=== PATIENT | female | born 1965 | race Caucasian/White ===

== ENCOUNTER 2017-07-30 10:02 | Outpatient (CLI) | payer BC ==
[2017-07-30 17:27] LABS: BASOPHILS % (AUTO) 0.4 %; EOSINOPHILS # (AUTO) 0.1 10^3/uL (0.0-0.7); EOSINOPHILS % (AUTO) 2.6 %; HGB - HEMOGLOBIN 13.5 g/dL (12.0-16.0); LYMPHOCYTES # (AUTO) 0.9 10^3/uL (1.5-3.5); LYMPHOCYTES % (AUTO) 17.6 %; MEAN CORPUSCULAR HEMOGLOBIN 29.4 pg (27.0-31.0); MEAN CORPUSCULAR HGB CONC 33.2 g/dL (32.0-36.0); MEAN CORPUSCULAR VOLUME 88.7 fL (81.0-99.0); MEAN PLATELET VOLUME 8.8 fL (7.9-10.8); MONOCYTES # (AUTO) 0.4 10^3/uL (0.0-1.0); MONOCYTES % (AUTO) 7.7 %; NEUTROPHILS # (AUTO) 3.5 10^3/uL (1.5-6.6); NEUTROPHILS % (AUTO) 71.7 %; PLT - PLATELET COUNT 242 10^3/uL (130-450); RED BLOOD COUNT 4.57 10^6/uL (4.20-5.40); WHITE BLOOD COUNT 4.9 x10^3/uL (4.8-10.8)
[2017-07-30 17:41] LABS: ALBUMIN 3.8 g/dL (3.2-5.5); ALBUMIN/GLOBULIN RATIO 1.4 (1.0-2.2); ALKALINE PHOSPHATASE 47 IU/L (42-121); ALT ALANINE AMINOTRANSFERASE 21 IU/L (10-60); AST ASPARTATE AMINOTRANSFERASE 23 IU/L (10-42); BILIRUBIN,TOTAL 0.8 mg/dL (0.2-1.0); BUN - BLOOD UREA NITROGEN 11 mg/dL (6-20); CALCIUM 8.7 mg/dL (8.5-10.3); CARBON DIOXIDE - CO2 26 mmol/L (21-32); CHLORIDE 105 mmol/L (101-111); CHOL/HDL RATIO 2.2 (<4.4); CHOLESTEROL 169 mg/dL; CREATININE 0.6 mg/dL (0.4-1.0); GFR - MDRD 106 (>89); GLUCOSE 92 mg/dL (70-100); HDL CHOLESTEROL 76 mg/dL; LDL CHOLESTEROL,CALCULATED 83 mg/dL; LDL/HDL RATIO 1.1 (<4.4); SODIUM 136 mmol/L (135-145); TOTAL PROTEIN 6.6 g/dL (6.7-8.2); VLDL CHOLESTEROL 10 mg/dL
== END 2017-07-30 10:03 | disposition home or self-care (01) ==
LOC: LAB.F 10:02
PROVIDERS: ATTEND Physician Assistant Medical
DX: Z00.00 Encounter for general adult medical examination without abnormal findings (principal); E55.9 Vitamin D deficiency, unspecified
CPT/HCPCS: 36415; 80053; 80061; 82306; 83721; 84443; 85025

== ENCOUNTER 2017-08-21 09:45 | Outpatient (CLI) | payer BC ==
--- NOTE | 2017-08-21 14:13 | Ultrasound Report ---
LEFT BREAST ULTRASOUND: 08/21/2017. CLINICAL INDICATION: Palpable abnormality left breast on clinical exam. FINDINGS: Ultrasound of the region of palpable abnormality identified on the requisition was performed. Unremarkable parenchymal lobules are seen. No discrete solid or cystic masses appreciated. No sonographically suspicious findings are seen. IMPRESSION: NEGATIVE EXAMINATION. RECOMMENDATION: Routine annual screening unless otherwise clinically indicated. BIRADS CATEGORY 1-NEGATIVE. TD: 08/21/2017 14:12
--- NOTE | 2017-08-21 14:21 | Mammography Report ---
DIGITAL DIAGNOSTIC MAMMOGRAM: 08/21/2017. CLINICAL INDICATION: Palpable abnormality on clinical examination. COMPARISON: 06/16/2009, 10/09/2007. TECHNIQUE: Bilateral CC, MLO, left true lateral views. FINDINGS: The breasts demonstrate scattered fibroglandular densities bilaterally, no suspicious masses, clustered microcalcifications, or regions of architectural distortion are identified. Specifically, no mammographic abnormality is appreciated in the 7 o 'clock position of the left breast, at the site indicated on the requisition. Please also refer to left breast ultrasound of the same day. IMPRESSION: NEGATIVE EXAMINATION. RECOMMENDATION: Routine annual screening unless otherwise clinically indicated. BIRADS CATEGORY 1 - NEGATIVE. STANDARD QUALIFYING STATEMENTS 1. This examination was reviewed with the aid of Computed Aided Detection (CAD). 2. A negative x-ray report should not delay biopsy if a dominant or clinically suspicious mass is present. More than 5% of cancers are not identified by x-ray. 3. Dense breasts may obscure an underlying neoplasm. TD: 08/21/2017 14:21 [place]
== END 2017-08-21 09:46 | disposition home or self-care (01) ==
LOC: DI 09:45
PROVIDERS: ATTEND Physician Assistant Medical
DX: N63.23 Unspecified lump in the left breast, lower outer quadrant (principal)
CPT/HCPCS: 76642; 77066

== ENCOUNTER 2017-11-22 11:15 | Outpatient (CLI) | payer BC | END 2017-11-22 11:16 | disposition home or self-care (01) | LOC: LAB.F 11:15 | PROVIDERS: ATTEND Physician Assistant Medical | DX: E55.9 Vitamin D deficiency, unspecified (principal) | CPT/HCPCS: 36415; 82306 ==

== ENCOUNTER 2021-06-06 11:01 | Outpatient (CLI) | payer BC ==
--- NOTE | 2021-06-06 11:57 | SLEEP CARE CONSULTATION ---
Information from patient questionnaire entered by Raj Pena MA. I have reviewed and concur with the information entered by Raj Pena MA. This document represents the service I personally performed and the decisions made by , Jasmin Jara ARNP. History of Present Illness Service Date and Time: 06/06/2021 1101 Reason for Visit: New patient Chief Complaint: reports: Snoring, Observed pauses in breathing, Frequent awakenings at night Date of Onset: 3 years Usual bedtime: 10:30 PM Time it takes to fall asleep: 20 minutes Snores at night: Yes Observed to quit breathing while asleep: Yes Sleeps alone due to snoring: Yes (sometimes) Number of times waking at night: 4-6 times Reasons for waking at night: reports: Snoring, Bathroom, Other (noise and unknown reason ). denies: Choking, Gasping for air Toss, Turn, or Twitch while sleeping: Yes Recalls having dreams: Yes (sometimes) Usually gets out of bed at: 0620 Feels refreshed in the morning: No Morning headache: No Sleepy or fatigued during the day: Yes (sometimes) Ever fallen asleep while driving: No Takes day naps: Yes (sometimes; 4 times a week for about 20 mins) Dreams during day naps: No Prior sleep studies: No Additional HPI information: I had the pleasure of seeing UNIQUE WRAY today regarding the possibility of her having a sleep disorder. Her current complaints are observed pauses in breathing, snoring and frequent night awakenings. Her has told her she snores loudly and will stop breathing in her sleep. He will sometimes sleep in another room because her snoring is so loud. She wakes up several times a night. 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 Patient is and lives in [place]. Have you smoked in the past 12 months: No Alcohol use: Yes Alcohol amount and frequency: 1 drink, 1-2 times a week Caffeine use: Yes Caffeine amount and frequency: 1 cup daily Family History Family history of sleep disordered breathing: Yes (snoring) Family Hx Sleep Apnea: Sibling: Snoring, Grandparent: Snoring Allergies and Home Medications Known drug allergies: No Drug allergies reviewed: Yes (NKDA) Home medication list reviewed: Yes Allergy and home medication list: Zyrtec Fluticasone nasal spray off/on with vitamins Review of Systems Weight gain over past 5 years: 25 pounds Respiratory: reports: shortness of breath, chronic cough Gastrointestinal: reports: heartburn Ear/Nose/Throat: reports: nasal congestion (post nasal drip ), hoarseness, tonsillectomy, wisdom teeth removed Musculoskeletal: reports: joint pain, neck pain, joint swelling Immunologic: reports: sneezing, allergies to food or environment Physical Exam Vital signs obtained and entered by: Derick PENA CMA [facility] Blood Pressure: 136/102 (RIGHT, PULSE 65) Cuff size: wrist Heart Rate: 69 O2 Saturation: 98 (WITH PAPER MASK) Height: 5 ft 6 in Weight: 210 lb (CLOTHED, PER PT) Body Mass Index: 33.9 BMI Classification: Obese Neck circumference: 14 (inches) Mouth and throat: narrow oropharynx Soft palate: long Hard palate: normal Uvula: normal Uvula visualization: 100% Mallampati Class I Tongue: enlarged in size with teeth wu on lateral edges Tonsils: absent bilaterally Neck: normal w/o lymphadenopathy or thyromegaly Heart: regular rate and rhythm Lungs: clear bilaterally Impression and Plan 1. Suspected Obstructive Sleep Apnea-Hypopnea Syndrome, as suggested by a history of loud and irregular snoring, observed cessation of breath while asleep, frequent awakening during the night, unrefreshed sleep, and cognitive impairment. Narrow oropharynx and obesity are common predisposing factors for obstructive sleep apnea-hypopnea syndrome. I recommend proceeding to polysomnography to confirm the diagnosis and to assess severity. If the patient has significant sleep disordered breathing, a manual CPAP titration study will also be performed to find the optimal treatment pressure. I informed the patient of what the sleep studies involve and after some discussion, obtained agreement to proceed. The pathophysiology of obstructive sleep apnea-hypopnea syndrome was discussed with the patient and health risks of cardiovascular and cerebro vascular disease if not treated. AASM brochure for obstructive sleep apnea- hypopnea syndrome given and reviewed. Risks of drowsy driving discussed in detail and patient advised to avoid long distance driving and to gizzard puller at the first sign of drowsiness. Patient agreed to plan. * Schedule polysomnography * Avoid long distance driving or driving when feeling sleepy. * Avoid alcohol, sedative and muscle relaxant around bedtime. * Attempt to lose weight. * Review instructions provided by trained office staff on how to prepare for the sleep study. * Return for follow-up after sleep study completed. Counseling Topics: Weight loss health impact Visit Type: In Office Time Spent with Patient (minutes): 30 Provider Statement: I spent 100% of the Face to Face Visit with the patient with greater than 50% spent counseling the patient and coordination of care.
[2021-06-06 11:58] VITALS: BP 136/102
== END 2021-06-06 11:02 | disposition home or self-care (01) ==
LOC: SC 11:01
PROVIDERS: ATTEND Nurse Practitioner Family
DX: R06.81 Apnea, not elsewhere classified (principal); G47.8 Other sleep disorders; R06.83 Snoring; R41.89 Other symptoms and signs involving cognitive functions and awareness; E66.9 Obesity, unspecified; Z68.33 Body mass index [BMI] 33.0-33.9, adult
CPT/HCPCS: 99203; 99212

== ENCOUNTER 2021-06-21 15:39 | Outpatient (CLI) | payer BC | END 2021-06-21 15:40 | disposition home or self-care (01) | LOC: SC 15:39 | PROVIDERS: ATTEND Nurse Practitioner Family | DX: G47.33 Obstructive sleep apnea (adult) (pediatric) (principal); R09.02 Hypoxemia | CPT/HCPCS: 95806 ==

== ENCOUNTER 2021-07-07 11:56 | Outpatient (CLI) | payer BC ==
[2021-07-07 12:08] VITALS: BP 120/74
--- NOTE | 2021-07-07 12:08 | SLEEP CARE CONSULTATION ---
Information from patient questionnaire entered by Raj Huff MA. I have reviewed and concur with the information entered by Raj Huff MA. This document represents the service I personally performed and the decisions made by , Jasmin Jara ARNP. History of Present Illness Service Date and Time: 07/07/2021 1140 Initial [place] Sleepiness Scale score: 10 Current [place] Sleepiness Scale score: 7 (2021) Additional HPI information: UNIQUE WRAY returns for follow up and results of the recently performed home sleep study. I explained the pathophysiology behind obstructive sleep apnea. We then spent quite a bit of time discussing different treatment options. For mild obstructive sleep apnea, surgery and oral appliance are alternatives to nasal CPAP therapy but in moderate or severe cases, nasal CPAP is the most effective and reliable treatment. Because apnea is primarily in supine position, then positional management therapy could be effective. Methods discussed such as positioning with pillows to prevent supine sleep. I reviewed the impact of weight changes on sleep apnea and strongly recommended losing weight. After some discussion, the patient opted to go with the nasal CPAP therapy. Nasal autoCPAP set at 4-15 cmH20 will be ordered with rationale explained. A manual titration study will be ordered if unable to find optimal pressure with office adjustments. I explained how CPAP machine works and what to expect when using the machine. Using CPAP every night in order to get used to it was emphasized. Patient advised to put CPAP mask on before getting into bed so as not to fall asleep wit hout CPAP. To assist acclimation to CPAP use, it could also be used for a short time during day while reading or watching TV. The patient was instructed to call the CPAP supplier to discuss any mechanical problem that may occur. If the mask given is uncomfortable or is difficult to keep on through the night even with adjustment, contact the CPAP supplier as many will replace with another mask sty le if notified before 30 days. If snoring or perceives is not getting enough air or too much air from the machine, notify this office. AASM patient education PAP tips reviewed and given to patient. Patient counseled not drink alcohol less than 4 hours before bedtime as it can increase snoring and apnea. Patient was cautioned about risks of drowsy driving until sleepiness symptoms resolve. Patient denies drowsy driving. Sleep Study - Results Type of Sleep Study: Home sleep study (F/U HOME STUDY) Prior sleep studies: No Polysomnography/Home Sleep Study results: Physician Impression: The quality of the study is good. The length of the study is adequate (> 240 minutes). Please also see the tabulated and graphic data. 1. Obstructive Sleep Apnea-Hypopnea (ICD-10 G47.33), mild, with an AHI of 14.9/hr and [place] SaO2 of 86%. During the study, the patient had 86 apneas (86 obstructive, 0 central, 0 mixed) and 22 hypopneas. The longest episode lasted 80.0 seconds. The patient did not sleep supine during this study. 2. Hypoxemia (ICD-10 R09.02), minimal, with the lowest oxygen saturation of 86 % and 0.4 minutes with SaO2 under 90%. Baseline oxygen saturation was normal (Average oxygen saturation was 95%). Allergies and Home Medications Home medication list reviewed: Yes (omeprazole and Zyrtec) Review of Systems Review of systems same as previous: No (acid reflux and stomach pain; being evaluated) Physical Exam Vital signs obtained and entered by: KATHERINE CORRALES Blood Pressure: 120/74 (RIGHT,PULSE 74, RESP 16,) Heart Rate: 74 O2 Saturation: 98 (PAPER MASK) Height: 5 ft 6 in Weight: 210 lb Body Mass Index: 33.9 BMI Classification: Obese Impression and Plan 1. Obstructive Sleep Apnea-Hypopnea Syndrome, 14.9, with lowest oxygen saturation of 86%. Obviously this is the cause of the patients symptoms of unrefreshed sleep, and excessive daytime sleepiness. As mentioned above, the patient will be started on nasal autoCPAP therapy with pressure set at 4-15 cmH2 O. A manual titration study will be completed if unable to find optimal treatment pressure with office adjustments. Compliance guidelines also reviewed. A copy of compliance guidelines will be given for reference at check out. 2. Hypoxemia, minimal, with the lowest oxygen saturation of 86 % and 0.4 minutes with SaO2 under 90%. Her baseline oxygen saturation was normal with an average oxygen saturation of 95%. * Nasal auto CPAP therapy, pressure at 4-15 cm H2O. * Attempt to lose weight. * Avoid alcohol consumption near bedtime. * Avoid supine sleep until using CPAP. * The patient is again cautioned about driving until sleepiness completely resolves. * Return one month after CPAP obtained. I will assess response to therapy and compliance at that time. Counseling Topics: Weight loss health impact Visit Type: In Office Time Spent with Patient (minutes): 20 Provider Statement: I spent 100% of the Face to Face Visit with the patient with greater than 50% spent counseling the patient and coordination of care.
== END 2021-07-07 11:57 | disposition home or self-care (01) ==
LOC: SC 11:56
PROVIDERS: ATTEND Nurse Practitioner Family
DX: G47.33 Obstructive sleep apnea (adult) (pediatric) (principal); R09.02 Hypoxemia; E66.9 Obesity, unspecified; Z68.33 Body mass index [BMI] 33.0-33.9, adult
CPT/HCPCS: 99212; 99213

== ENCOUNTER 2021-07-25 11:00 | Outpatient (CLI) | payer BC ==
[2021-07-25] MEDS ORDERED: ALBUTEROL 1 PUFF INH STA (12:46)
== END 2021-07-25 11:01 | disposition home or self-care (01) ==
LOC: RT 11:00
PROVIDERS: ATTEND Registered Nurse
DX: R06.09 Other forms of dyspnea (principal)
CPT/HCPCS: 94060; 94729

== ENCOUNTER 2021-07-26 07:38 | Outpatient (CLI) | payer BC ==
[2021-07-26 07:55] LABS: BASOPHILS % (AUTO) 0.4 %; EOSINOPHILS # (AUTO) 0.2 10^3/uL (0.0-0.7); EOSINOPHILS % (AUTO) 3.1 %; HCT - HEMATOCRIT 42.7 % (37.0-47.0); HGB - HEMOGLOBIN 14.3 g/dL (12.0-16.0); LYMPHOCYTES # (AUTO) 1.3 10^3/uL (1.5-3.5); LYMPHOCYTES % (AUTO) 25.6 %; MEAN CORPUSCULAR HEMOGLOBIN 30.2 pg (27.0-31.0); MEAN CORPUSCULAR HGB CONC 33.5 g/dL (32.0-36.0); MEAN CORPUSCULAR VOLUME 90.1 fL (81.0-99.0); MEAN PLATELET VOLUME 9.8 fL (7.9-10.8); MONOCYTES # (AUTO) 0.4 10^3/uL (0.0-1.0); MONOCYTES % (AUTO) 8.4 %; NEUTROPHILS # (AUTO) 3.2 10^3/uL (1.5-6.6); NEUTROPHILS % (AUTO) 62.3 %; PLT - PLATELET COUNT 255 10^3/uL (130-450); RED BLOOD COUNT 4.74 10^6/uL (4.20-5.40); RED CELL DISTRIBUTION WIDTH 12.5 % (12.0-15.0); WHITE BLOOD COUNT 5.1 x10^3/uL (4.8-10.8)
[2021-07-26 08:23] LABS: ALBUMIN 3.8 g/dL (3.2-5.5); ALBUMIN/GLOBULIN RATIO 1.3 (1.0-2.2); ALKALINE PHOSPHATASE 52 IU/L (42-121); ALT ALANINE AMINOTRANSFERASE 21 IU/L (10-60); AST ASPARTATE AMINOTRANSFERASE 22 IU/L (10-42); BILIRUBIN,TOTAL 0.6 mg/dL (0.2-1.0); BUN - BLOOD UREA NITROGEN 14 mg/dL (6-20); CALCIUM 8.8 mg/dL (8.5-10.3); CARBON DIOXIDE - CO2 25 mmol/L (21-32); CHLORIDE 104 mmol/L (101-111); CHOL/HDL RATIO 2.5 (<4.4); CHOLESTEROL 196 mg/dL; CREATININE 0.7 mg/dL (0.4-1.0); GFR - MDRD 87 (>89); GLUCOSE 101 mg/dL (70-100); HDL CHOLESTEROL 78 mg/dL; LDL CHOLESTEROL,CALCULATED 106 mg/dL; LDL/HDL RATIO 1.4 (<4.4); POTASSIUM 3.8 mmol/L (3.5-5.0); SODIUM 138 mmol/L (135-145); TOTAL PROTEIN 6.7 g/dL (6.7-8.2); TRIGLYCERIDES 61 mg/dL; VLDL CHOLESTEROL 12 mg/dL
[2021-07-26 08:35] LABS: THYROID STIMULATING HORMONE 2.96 uIU/mL (0.34-5.60)
== END 2021-07-26 07:39 | disposition home or self-care (01) ==
LOC: LAB 07:38
PROVIDERS: ATTEND Registered Nurse
DX: Z13.228 Encounter for screening for other metabolic disorders (principal); Z13.220 Encounter for screening for lipoid disorders; Z13.29 Encounter for screening for other suspected endocrine disorder; Z13.0 Encounter for screening for diseases of the blood and blood-forming organs and certain disorders involving the immune mechanism
CPT/HCPCS: 36415; 80053; 80061; 83721; 84443; 85025

== ENCOUNTER 2021-09-05 08:20 | Day surgery (SDC) | payer BC ==
[2021-09-05] MEDS ORDERED: LACTATED RINGERS 1,000 ML IV ONE ×2 (08:26→10:21)
[2021-09-05 08:37] LABS: HCG UR QUAL NEGATIVE
--- NOTE | 2021-09-05 08:59 | ANESTHESIA ---
Pre-Anesthesia VS, & Labs - Diagnosis screening - Procedure colonoscopy Vital Signs: Temp Pulse Resp BP Pulse Ox 36.6 C 76 16 132/96 H 100 09/05/21 08:40 09/05/21 08:40 09/05/21 08:40 09/05/21 08:40 09/05/21 08:40 Height: 5 ft 6 in Weight (kg): 95.4 kg Body Mass Index: 33.9 BMI Classification: Obese - NPO >8 hours - Is Patient ?: No Anes History & Medical History - Anesthetic History Anesthesia Complications: reports: No previous complications - Medical History Cardiovascular: reports: None Pulmonary: reports: Sleep apnea, CPAP use Gastrointestinal: reports: GERD Skin: reports: Other (recent hives on arms and legs of unknown cause, was given three doses of prednesone, resolved last week) Exam General: Alert, Oriented x3 Dental: WNL Mouth Opening: Greater than 4 Fingerbreadths Mallampati classification: I Thyromental Distance: greater than 6 cm Respiratory: Lungs clear Cardiovascular: Regular rate, Normal S1, Normal S2 Plan Anesthesia Type: Total IV Consent for Procedure(s) Verified and Reviewed: Yes Code Status: Attempt Resuscitation ASA classification: 2-Mild systemic disease Is this case an emergency?: No
[2021-09-05] MEDS ORDERED: PROPOFOL 500 MG/50 ML 500 MG/50 ML VIAL ONE (09:14)
[2021-09-05] MEDS ORDERED: SIMETHICONE 40 MG/0.6 ML 30 ML BOTTLE PO ONE (10:12)
[2021-09-05 10:33] VITALS: BP 105/72
--- NOTE | 2021-09-05 12:03 | ANESTHESIA POST OP EVALUATION ---
Anesthesia Post Eval - Post Anesthesia Eval Vitals: Last Vital Signs Temp 37.1 C 09/05/21 10:21 Pulse 74 09/05/21 10:31 Resp 19 09/05/21 10:31 BP 105/72 09/05/21 10:31 Pulse Ox 99 09/05/21 10:31 CV Function Including HR & BP: Stable Pain Control: Satisfactory Nausea & Vomiting: Negative Mental Status: Baseline Respiratory Status: Airway Patent Hydration Status: Satisfactory Anesthesia Complications: None
== END 2021-09-05 08:21 | disposition home or self-care (01) ==
LOC: SDS 08:20
PROVIDERS: ATTEND Surgery
DX: Z12.11 Encounter for screening for malignant neoplasm of colon (principal); K64.4 Residual hemorrhoidal skin tags; K57.30 Diverticulosis of large intestine without perforation or abscess without bleeding; E66.9 Obesity, unspecified; Z68.33 Body mass index [BMI] 33.0-33.9, adult; G47.30 Sleep apnea, unspecified; J44.9 Chronic obstructive pulmonary disease, unspecified; Z99.11 Dependence on respirator [ventilator] status
CPT/HCPCS: 45378; 81025; A9270; J7120

== ENCOUNTER 2021-09-15 11:13 | Outpatient (CLI) | payer BC ==
[2021-09-15 12:07] VITALS: BP 154/98
--- NOTE | 2021-09-15 12:07 | SLEEP CARE CONSULTATION ---
Information from patient questionnaire entered by Raj Huff MA. I have reviewed and concur with the information entered by Raj Huff MA. This document represents the service I personally performed and the decisions made by , Jasmin Jara ARNP. History of Present Illness Service Date and Time: 09/15/2021 1113 Previous diagnosis: Mild, Obstructive Sleep Apnea-Hypopnea Syndrome AHI: 14.9 Reason for follow up: first compliance (SET DATE 07/14/21, RESMED, ) Equipment type: CPAP Equipment obtained from: Other ([facility]; got initial supplies) Mask style: Nasal pillows Backup mask available: Yes (will keep old mask when replaced) Last cushion change: 1 week Prior sleep studies: No Type of Sleep Study: Home sleep study (F/U HOME STUDY) HPI additional information: UNIQUE WRAY was diagnosed to have mild, AHI 14.9, obstructive sleep apnea- hypopnea syndrome and returned today for CPAP therapy first compliance follow- up. Sleep Study - Results Type of Sleep Study: Home sleep study (F/U HOME STUDY) Prior sleep studies: No CPAP Compliance Data - Data Reviewed with Patient Average duration of nightly device use: 5 HOURS 43 MINUTES Compliance rate %: 87 Current pressure setting (cmH2O): 4-15 (median 8.6, avg 9.1, max 9.9) Average residual AHI: 1.2 Central apnea: .7 Obstructive apnea: .2 Average large leak: 4.6 Subjective Missed days of use due to: reports: travel Patient concerns: denies: aerophagia, mask discomfort, air blowing in eyes, mask leak noise, condensation in mask/hose, nasal congestion, dry mouth, nose, throat, epistaxis, other Observed to snore while using device: No Current pressure setting perceived as: comfortable On therapy, patient: reports: sleeping better, awakening more refreshed, being more awake and alert during the day, more rested overall. denies: drowsiness while driving Initial [place] Sleepiness Scale score: 10 Current [place] Sleepiness Scale score: 3 (08/2021) Allergies and Home Medications Home medication list reviewed: Yes (switched acid reflux medication, name unknown) Allergy and home medication list: Allergies No Known Drug Allergies Allergy (Verified 09/05/21 08:52) Review of Systems Review of systems same as previous: Yes (no changes) Physical Exam Vital signs obtained and entered by: Derick HUFF CMA [facility] Blood Pressure: 154/98 (RESP 18, PULSE 71, RIGHT,) Cuff size: wrist Heart Rate: 72 O2 Saturation: 98 (PAPER MASK) Height: 5 ft 6 in Weight: 211 lb (WITH CLOTHES) Body Mass Index: 34.0 BMI Classification: Obese Impression and Plan 1. Obstructive Sleep Apnea-Hypopnea Syndrome, mild, with good treatment compliance and good apnea control. On CPAP therapy, the patient has better sleep quality and is more rested overall. Patient denies problems with oral dryness, nasal congestion, epistaxis, skin irritation or aerophagia. The patients pressure will be changed to autoCPAP 8-10 cmH20 to reflect pressures being used. Patient advised to contact me if pressure change is uncomfortable so that it can be adjusted. Goals for apnea control discussed. Patient's apnea severity and rationale for treatment to reduce apnea, improve sleep quality and reduce cardiovascular and cerebrovascular events was reviewed. 2. Obesity, unspecified. Currently patients BMI is 34.0. Obesity increases the risk of apnea, CPAP pressure requirements and overall health risks especially cardiovascular and diabetes. Thus patient is advised to lose weight. Weight loss can be done with reducing portion size, reducing refined foods and balancing content with vegetables, fruit and whole grain foods. In addition, patient encouraged to get regular exercise. The patient's CPAP pressure range should accommodate some weight loss. Symptoms to report for additional pressure adjustment discussed. * Change auto CPAP pressure to 8-10 cmH2O * Notify me if snoring with mask or feeling that the pressure is too much or too little * Attempt to lose weight * Call this office if any problems using CPAP * Return for follow up in 1-2 months, or sooner if concerns arise Counseling Topics: Spare mask, Weight loss health impact Visit Type: In Office Time Spent with Patient (minutes): 20 Provider Statement: I spent 100% of the Face to Face Visit with the patient with greater than 50% spent counseling the patient and coordination of care.
== END 2021-09-15 11:14 | disposition home or self-care (01) ==
LOC: SC 11:13
PROVIDERS: ATTEND Nurse Practitioner Family
DX: G47.33 Obstructive sleep apnea (adult) (pediatric) (principal); E66.9 Obesity, unspecified; Z68.34 Body mass index [BMI] 34.0-34.9, adult
CPT/HCPCS: 99212; 99213

== ENCOUNTER 2021-10-24 11:18 | Outpatient (CLI) | payer BC ==
[2021-10-24 12:01] VITALS: BP 131/88
--- NOTE | 2021-10-24 12:01 | SLEEP CARE CONSULTATION ---
Information from patient questionnaire entered by Raj Huff MA. I have reviewed and concur with the information entered by Raj Huff MA. This document represents the service I personally performed and the decisions made by , Jasmin Jara ARNP. History of Present Illness Service Date and Time: 10/24/2021 1118 Previous diagnosis: Mild, Obstructive Sleep Apnea-Hypopnea Syndrome AHI: 14.9 (in 2021) Reason for follow up: one month (PRESSURE CHANGE, RESMED, REYES 07/14/21, ) Equipment type: CPAP Equipment obtained from: Other ([facility]; getting supplies) Mask style: Nasal pillows Backup mask available: Yes (other mask) Last cushion change: 2 days ago Prior sleep studies: No Type of Sleep Study: Home sleep study (F/U HOME STUDY) HPI additional information: UNIQUE WRAY was diagnosed to have mild, AHI 14.9, obstructive sleep apnea- hypopnea syndrome and returned today for CPAP therapy one month follow-up. Sleep Study - Results Type of Sleep Study: Home sleep study (F/U HOME STUDY) Prior sleep studies: No CPAP Compliance Data - Data Reviewed with Patient Average duration of nightly device use: 5 HOURS 42 MINUTES Compliance rate %: 93 Current pressure setting (cmH2O): 8-10 Average residual AHI: 1.5 Central apnea: 1.0 Obstructive apnea: 0.3 Hypopnea: .2 Average large leak: 4.3 L/min Subjective Missed days of use due to: reports: travel Patient concerns: denies: aerophagia, mask discomfort, air blowing in eyes, mask leak noise, condensation in mask/hose, nasal congestion, dry mouth, nose, throat, epistaxis, other Observed to snore while using device: No Current pressure setting perceived as: comfortable On therapy, patient: reports: sleeping better, awakening more refreshed, being more awake and alert during the day, more rested overall. denies: drowsiness while driving Initial [place] Sleepiness Scale score: 10 Current [place] Sleepiness Scale score: 2 (09/2021) Allergies and Home Medications Home medication list reviewed: Yes (change in medication for heartburn) Allergy and home medication list: Allergies No Known Drug Allergies Allergy (Verified 09/05/21 08:52) Review of Systems Review of systems same as previous: Yes (no changes) Physical Exam Vital signs obtained and entered by: KATHERINE CORRALES Blood Pressure: 131/88 (RESP 18, PULSE 58, LEFT) Heart Rate: 60 O2 Saturation: 98 Height: 5 ft 6 in Weight: 215 lb (CLOTHES) Weight change since last visit: 4 lb gain Body Mass Index: 34.7 BMI Classification: Obese Impression and Plan 1. Obstructive Sleep Apnea-Hypopnea Syndrome, mild, with good treatment compliance and good apnea control. On CPAP therapy, the patient has better sleep quality and is more rested overall. She states she has more energy during the day. She also has been having less stress since school has let out for the summer. Patient's apnea severity and rationale for treatment to reduce apnea, improve sleep quality and reduce cardiovascular and cerebrovascular events was reviewed. 2. Obesity, unspecified. Currently patients BMI is 34.7. Obesity increases the risk of apnea, CPAP pressure requirements and overall health risks especially cardiovascular and diabetes. Thus patient is advised to try to lose weight. Weight loss can be done with reducing portion size, reducing refined foods and balancing content with vegetables, fruit and whole grain foods. In addition, patient encouraged to get regular exercise. * Continue auto CPAP pressure at 8-10 cmH2O * Notify me if snoring with mask or feeling that the pressure is too much or too little * Attempt to lose weight * Call this office if any problems using CPAP * Return for follow up in 3 months, or sooner if concerns arise Counseling Topics: Spare mask, Weight loss health impact Visit Type: In Office Time Spent with Patient (minutes): 20 Provider Statement: I spent 100% of the Face to Face Visit with the patient with greater than 50% spent counseling the patient and coordination of care.
== END 2021-10-24 11:19 | disposition home or self-care (01) ==
LOC: SC 11:18
PROVIDERS: ATTEND Nurse Practitioner Family
DX: G47.33 Obstructive sleep apnea (adult) (pediatric) (principal); E66.9 Obesity, unspecified; Z68.34 Body mass index [BMI] 34.0-34.9, adult
CPT/HCPCS: 99212; 99213

== ENCOUNTER 2022-01-24 16:02 | Outpatient (CLI) | payer BC ==
[2022-01-24 16:20] VITALS: BP 112/76
--- NOTE | 2022-01-24 16:20 | SLEEP CARE CONSULTATION ---
Information from patient questionnaire entered by Oly Kennedy. I have reviewed and concur with the information entered by Oly Kennedy. This document represents the service I personally performed and the decisions made by me, Jasmin Jara ARNP. History of Present Illness Service Date and Time: 01/24/2022 1602 Previous diagnosis: Mild, Obstructive Sleep Apnea-Hypopnea Syndrome AHI: 14.9 Reason for follow up: three month Equipment type: CPAP (RESMED) Equipment obtained from: Other ([facility]; getting supplies) Mask style: Nasal pillows Backup mask available: Yes (old mask) Last cushion change: couple weeks Prior sleep studies: No Type of Sleep Study: Home sleep study (F/U HOME STUDY) HPI additional information: UNIQUE WRAY was diagnosed to have mild, AHI 14.9, obstructive sleep apnea- hypopnea syndrome and returned today for CPAP therapy three month follow-up. Sleep Study - Results Type of Sleep Study: Home sleep study (F/U HOME STUDY) Prior sleep studies: No CPAP Compliance Data - Data Reviewed with Patient Average duration of nightly device use: 6 hours, 27 minutes Compliance rate %: 86 (10/25/21 to 01/22/22; 83/90 days used) Current pressure setting (cmH2O): 8-10 Average residual AHI: 1.9 Average large leak: 0.2 L/min Subjective Missed days of use due to: reports: travel (in area without wifi) Patient concerns: denies: aerophagia, mask discomfort, air blowing in eyes, mask leak noise, condensation in mask/hose, nasal congestion, dry mouth, nose, throat, epistaxis Observed to snore while using device: No Current pressure setting perceived as: comfortable On therapy, patient: reports: sleeping better, awakening more refreshed, being more awake and alert during the day, more rested overall. denies: drowsiness while driving Initial [place] Sleepiness Scale score: 10 Current [place] Sleepiness Scale score: 2 (01/24/22) Allergies and Home Medications Drug allergies reviewed: Yes (NKDA) Home medication list reviewed: Yes (no changes) Review of Systems Review of systems same as previous: Yes (endoscopy to check stomach for issues) Physical Exam Vital signs obtained and entered by: RODRIGUEZ CHOWDHURY Blood Pressure: 112/76 (LEFT ARM ) Cuff size: regular Heart Rate: 57 O2 Saturation: 98 Height: 5 ft 6 in Weight: 215 lb Body Mass Index: 34.7 BMI Classification: Obese Impression and Plan 1. Obstructive Sleep Apnea-Hypopnea Syndrome, mild, with good treatment compliance and good apnea control. On CPAP therapy, the patient has better sleep quality and is more rested overall. Patient has significant improvement of her sleep apnea and is satisfied with current CPAP therapy. Patient denies problems with oral dryness, nasal congestion, epistaxis, skin irritation or aerophagia. Patient's apnea severity and rationale for treatment to reduce apnea, improve sleep quality and reduce cardiovascular and cerebrovascular events was reviewed. 2. Obesity, unspecified. Currently patients BMI is 34.7. Obesity increases the risk of apnea, CPAP pressure requirements and overall health risks especially cardiovascular and diabetes. Thus patient is advised to lose weight. * Continue auto CPAP pressure at 8-10 cmH2O * Notify me if snoring with mask or feeling that the pressure is too much or too little * Attempt to lose weight * Call this office if any problems using CPAP * Return for follow up in 1 year, or sooner if concerns arise Counseling Topics: Spare mask, Weight loss health impact Visit Type: In Office Time Spent with Patient (minutes): 12 Provider Statement: I spent 100% of the Face to Face Visit with the patient with greater than 50% spent counseling the patient and coordination of care.
== END 2022-01-24 16:03 | disposition home or self-care (01) ==
LOC: SC 16:02
PROVIDERS: ATTEND Nurse Practitioner Family
DX: G47.33 Obstructive sleep apnea (adult) (pediatric) (principal); E66.9 Obesity, unspecified; Z68.34 Body mass index [BMI] 34.0-34.9, adult
CPT/HCPCS: 99212

== ENCOUNTER 2022-04-02 13:50 | Outpatient (CLI) | payer BC ==
--- NOTE | 2022-04-02 14:43 | XRAY Report ---
PROCEDURE: Elbow 3 View RT INDICATIONS: RIGHT ELBOW PAIN TECHNIQUE: 3 views of the elbow were acquired. COMPARISON: None FINDINGS: Bones: Acute mildly displaced radial head fracture. There is approximately 2 mm cortical step-off bet ween the fracture fragments. No elbow dislocation visualized. Soft tissues: An elbow joint effusion is present. No suspicious soft tissue calcifications. IMPRESSION: Acute mildly displaced radial head fracture. Reviewed by: Octvaio Willis MD on 04/02/2022 2:42 PM PST Approved by: Octavio Willis MD on 04/02/2022 2:42 PM PST Station ID: [id number]
== END 2022-04-02 13:51 | disposition home or self-care (01) ==
LOC: DI.S 13:50
PROVIDERS: ATTEND Registered Nurse
DX: S52.121A Displaced fracture of head of right radius, initial encounter for closed fracture (principal)

== ENCOUNTER 2022-04-09 13:52 | Outpatient (CLI) | payer BC ==
--- NOTE | 2022-04-09 11:52 | XRAY Report ---
PROCEDURE: Elbow 3 View RT INDICATIONS: RIGHT ELBOW FRACTURE TECHNIQUE: 3 views of the elbow were acquired. COMPARISON: Right elbow radiographs 04/02/2022 FINDINGS: Bones: Minimally displaced intra-articular fracture of the radial head is again seen. There appears t o be minimal step-off at the articular surface. No suspicious bony lesions. Soft tissues: Small elbow joint effusion. No suspicious soft tissue calcifications. IMPRESSION: Minimally displaced intra-articular radial head fracture does not appear significant changed. Reviewed by: Octavio Mayfield MD on 04/09/2022 11:50 AM PST Approved by: Octavio Mayfield MD on 04/09/2022 11:50 AM PST Station ID: [id number]
== END 2022-04-09 13:53 | disposition home or self-care (01) ==
LOC: DI.WOS 13:52
PROVIDERS: ATTEND Orthopaedic Surgery
DX: S52.121A Displaced fracture of head of right radius, initial encounter for closed fracture (principal)

== ENCOUNTER 2023-01-08 07:04 | Outpatient (CLI) | payer BC ==
[2023-01-08 07:19] LABS: BASOPHILS % (AUTO) 0.5 %; EOSINOPHILS # (AUTO) 0.2 10^3/uL (0.0-0.7); EOSINOPHILS % (AUTO) 5.6 %; HCT - HEMATOCRIT 42.7 % (37.0-47.0); HGB - HEMOGLOBIN 13.8 g/dL (12.0-16.0); LYMPHOCYTES # (AUTO) 1.4 10^3/uL (1.5-3.5); LYMPHOCYTES % (AUTO) 33.2 %; MEAN CORPUSCULAR HEMOGLOBIN 29.7 pg (27.0-31.0); MEAN CORPUSCULAR HGB CONC 32.3 g/dL (32.0-36.0); MEAN CORPUSCULAR VOLUME 91.8 fL (81.0-99.0); MEAN PLATELET VOLUME 9.7 fL (7.9-10.8); MONOCYTES # (AUTO) 0.3 10^3/uL (0.0-1.0); MONOCYTES % (AUTO) 7.2 %; NEUTROPHILS # (AUTO) 2.3 10^3/uL (1.5-6.6); NEUTROPHILS % (AUTO) 53.3 %; PLT - PLATELET COUNT 242 10^3/uL (130-450); RED BLOOD COUNT 4.65 10^6/uL (4.20-5.40); RED CELL DISTRIBUTION WIDTH 12.7 % (12.0-15.0); WHITE BLOOD COUNT 4.3 x10^3/uL (4.8-10.8)
[2023-01-08 07:33] LABS: ALBUMIN 4.2 g/dL (3.2-5.5); ALBUMIN/GLOBULIN RATIO 1.8 (1.0-2.2); ALKALINE PHOSPHATASE 68 IU/L (42-121); ALT ALANINE AMINOTRANSFERASE 33 IU/L (10-60); AST ASPARTATE AMINOTRANSFERASE 22 IU/L (10-42); BILIRUBIN,TOTAL 0.7 mg/dL (0.2-1.0); BUN - BLOOD UREA NITROGEN 19 mg/dL (6-20); CALCIUM 9.6 mg/dL (8.5-10.3); CARBON DIOXIDE - CO2 29 mmol/L (21-32); CHLORIDE 108 mmol/L (101-111); CHOL/HDL RATIO 2.3 (<4.4); CHOLESTEROL 172 mg/dL; CREATININE 0.7 mg/dL (0.6-1.3); GFR - MDRD 87 (>89); GLUCOSE 99 mg/dL (74-104); HDL CHOLESTEROL 74 mg/dL; LDL CHOLESTEROL,CALCULATED 78 mg/dL; LDL/HDL RATIO 1.1 (<4.4); SODIUM 140 mmol/L (135-145); TOTAL PROTEIN 6.5 g/dL (6.4-8.9); TRIGLYCERIDES 98 mg/dL (48-352); VLDL CHOLESTEROL 20 mg/dL
[2023-01-08 07:43] LABS: THYROID STIMULATING HORMONE 2.35 uIU/mL (0.34-5.60)
== END 2023-01-08 07:05 | disposition home or self-care (01) ==
LOC: LAB 07:04
PROVIDERS: ATTEND Registered Nurse
DX: E55.9 Vitamin D deficiency, unspecified (principal); Z13.228 Encounter for screening for other metabolic disorders; Z13.220 Encounter for screening for lipoid disorders; Z13.29 Encounter for screening for other suspected endocrine disorder; Z13.0 Encounter for screening for diseases of the blood and blood-forming organs and certain disorders involving the immune mechanism
CPT/HCPCS: 36415; 80053; 80061; 82306; 83721; 84443; 85025

== ENCOUNTER 2023-03-13 14:56 | Outpatient (CLI) | payer BC ==
--- NOTE | 2023-03-15 13:14 | Mammography Report ---
BILATERAL DIGITAL SCREENING MAMMOGRAM 3D/2D: 03/13/2023 CLINICAL: Routine screening. Comparison is made to exam dated: 08/21/2017 mammogram - [facility]. There are scattered areas of fibroglandular density in both breasts (category b / 25%-50% glandular t issue). There is an irregular mass with a spiculated margin in the right breast at 4 o'clock anterior depth. There is a focal asymmetry in the left breast central to the nipple anterior depth. No other significant masses or calcifications are seen in either breast. IMPRESSION: INCOMPLETE: NEEDS ADDITIONAL IMAGING EVALUATION The irregular mass in the right breast at 4 o'clock anterior depth is indeterminate. Additional view s with possible ultrasound are recommended. The focal asymmetry in the left breast central to the nipple anterior depth is indeterminate. Additi onal views with possible ultrasound are recommended. Based on the Tyrer Cuzick model (a risk assessment model) the patients lifetime risk is 15.4% and he r 10 year risk is 5.2%. According to the ACR, ACS, and NCCN guidelines, an annual breast MRI exam alissa ng with mammogram is recommended if the patients lifetime risk is 20% or greater. This exam was interpreted at Station ID: [id number]. NOTE: For mammograms, a report in lay terms will be sent to the patient. Approximately 15% of breast malignancies will not be visualized mammographically. In the management of a palpable breast mass, a negative mammogram must not discourage biopsy of a clinically suspicious lesion. Electronically Signed By: Jefe Hubbard M.D. lc/:03/14/2023 16:07:39 ACR BI-RADS Category 0: Incomplete 3340F PARENCHYMAL PATTERN: (A) - The breast(s) demonstrate(s) scattered fibroglandular densities. BI-RADS CATEGORY: (0) - 0 Mammo and [place] [id number] Immediate follow-up LATERALITY: (B)
== END 2023-03-13 14:57 | disposition home or self-care (01) ==
LOC: DI 14:56
PROVIDERS: ATTEND Registered Nurse
DX: Z12.31 Encounter for screening mammogram for malignant neoplasm of breast (principal); R92.323 Mammographic fibroglandular density, bilateral breasts; N63.14 Unspecified lump in the right breast, lower inner quadrant; R92.8 Other abnormal and inconclusive findings on diagnostic imaging of breast

== ENCOUNTER 2023-04-03 07:39 | Outpatient (CLI) | payer BC ==
--- NOTE | 2023-04-04 17:12 | Mammography Report ---
BILATERAL DIGITAL DIAGNOSTIC MAMMOGRAM 3D/2D WITH SPOT COMPRESSION: 04/03/2023 CLINICAL: Patient returns today to evaluate asymmetries in bilateral breasts. Comparison is made to exams dated: 03/13/2023 mammogram, 08/21/2017 mammogram, and 06/16/2009 mammogra m - [facility]. There are scattered areas of fibroglandular density in both breasts (category b / 25%-50% glandular t issue). There is a new 1.4 cm irregular high density mass with a spiculated and microlobulated margin in the right breast at 4 o'clock anterior depth. This is seen in additional views. There is a new 7 mm oval equal density asymmetry with an obscured and circumscribed margin in the lef t breast central to the nipple anterior depth. This is seen in additional views. There also is a possible 4 mm round high density asymmetry with a spiculated margin in the left breas t at 9 o'clock middle depth. This is not seen in additional views. No other significant masses or calcifications are seen in either breast. IMPRESSION: INCOMPLETE: NEEDS ADDITIONAL IMAGING EVALUATION The new 1.4 cm irregular high density mass in the right breast at 4 o'clock anterior depth is suspici ous. An ultrasound is recommended. This was performed immediately following this exam. The new 7 mm oval equal density asymmetry in the left breast central to the nipple anterior depth mos t likely is a cyst and is indeterminate. An ultrasound is recommended. The possible 4 mm round high density asymmetry in the left breast at 9 o'clock middle depth is indete rminate. An ultrasound is recommended. This was performed for both of these areas immediately following this exam. Based on the Tyrer Cuzick model (a risk assessment model) the patients lifetime risk is 12.1% and he r 10 year risk is 4.0%. According to the ACR, ACS, and NCCN guidelines, an annual breast MRI exam alissa ng with mammogram is recommended if the patients lifetime risk is 20% or greater. This exam was interpreted at Station ID: [id number]. NOTE: For mammograms, a report in lay terms will be sent to the patient. Approximately 15% of breast malignancies will not be visualized mammographically. In the management of a palpable breast mass, a negative mammogram must not discourage biopsy of a clinically suspicious lesion. Electronically Signed By: Kimberly campos/:04/03/2023 09:31:32 ACR BI-RADS Category 0: Incomplete 3340F PARENCHYMAL PATTERN: (A) - The breast(s) demonstrate(s) scattered fibroglandular densities. BI-RADS CATEGORY: (0) - 0 Ultrasound [id number] Immediate follow-up LATERALITY: (B)
--- NOTE | 2023-04-04 17:12 | Ultrasound Report ---
LIMITED ULTRASOUND OF RIGHT BREAST AND AXILLA: 04/03/2023 CLINICAL: Patient returns today to evaluate a focal asymmetry in the right breast. Patient returns to day to evaluate an asymmetry in the left breast. Comparison is made to exams dated: 04/03/2023 mammogram, 03/13/2023 mammogram, 08/21/2017 mammogram, mammogram, 10/09/2007 mammogram - [facility], and 09/16/2006 mammogram - [facility]. Color flow ultrasound of the right breast 4 o'clock, and axilla regions was performed. Sosa scale im ages of the real-time examination were reviewed. There is a 1.1 cm x 0.7 cm x 0.9 cm irregular mass with a spiculated margin in the right breast at 4 o'clock anterior depth 2 cm from the nipple. This irregular mass is hypoechoic with an echogenic uhce ndary. This correlates with mammography findings. There is associated architectural distortion and thickening of Carlos Enrique's ligament. Color flow imaging demonstrates that there is increased vascularity . No significant abnormalities were seen sonographically in the right axilla. IMPRESSION: HIGHLY SUGGESTIVE OF MALIGNANCY The 1.1 cm irregular mass in the right breast is highly suggestive of malignancy. An ultrasound guid ed biopsy is recommended. Findings and recommendations were discussed with the patient in person by Dr. Gayathri Ascencio at time of exam. This exam was interpreted at Station ID: [id number]. Electronically Signed By: Kimberly campos/:04/03/2023 09:33:13 Ultrasound BI-RADS: 5 Highly suggestive of malignancy BI-RADS CATEGORY: (5) - 5 Biopsy [id number] Immediate follow-up LATERALITY: (R)
--- NOTE | 2023-04-04 17:13 | Ultrasound Report ---
LIMITED ULTRASOUND OF LEFT BREAST: 04/03/2023 CLINICAL: Patient returns today to evaluate a focal asymmetry in the left breast. Patient returns tod ay to evaluate a focal asymmetry in the right breast. Comparison is made to exams dated: 04/03/2023 mammogram, 03/13/2023 mammogram, 08/21/2017 mammogram, mammogram, 10/09/2007 mammogram - [facility], and 09/16/2006 mammogram - [facility]. Color flow ultrasound of the left breast 9-10 o'clock, and retroareolar regions was performed. Sosa scale images of the real-time examination were reviewed. There is a 0.5 cm x 0.5 cm x 0.3 cm oval cyst with a smooth internal wall in the left breast at 12 o' clock anterior depth. This oval cyst is anechoic with a well-defined boundary and posterior acoustic enhancement. This correlates with mammography findings. Color flow imaging demonstrates that there is no vascularity present. No sonographic correlate to the possible asymmetry in the 9:00-10:00 left breast. IMPRESSION: PROBABLY BENIGN The 0.5 cm x 0.5 cm x 0.3 cm oval cyst in the left breast most likely is a simple cyst or a complicat ed cyst and is probably benign. Follow-up mammogram and ultrasound in 6 months is recommended. There is no abnormality seen in the left breast to correspond with the mammography finding at 9 o'ja ck. A follow-up left mammogram and possible ultrasound in 6 months is recommended to demonstrate mammogra phic stability. Findings and recommendations were discussed with the patient in person by Dr. Gayathri Ascencio at time of exam. This exam was interpreted at Station ID: [id number]. Electronically Signed By: Kimberly campos/:04/03/2023 09:36:45 Ultrasound BI-RADS: 3 Probably benign BI-RADS CATEGORY: (3) - 3 Mammo and US [id number] 6 month follow-up LATERALITY: (L)
== END 2023-04-03 07:40 | disposition home or self-care (01) ==
LOC: DI 07:39
PROVIDERS: ATTEND Registered Nurse
DX: N63.14 Unspecified lump in the right breast, lower inner quadrant (principal); N60.02 Solitary cyst of left breast; R92.323 Mammographic fibroglandular density, bilateral breasts

== ENCOUNTER 2023-04-24 09:44 | Outpatient (CLI) | payer BC ==
[2023-04-24] MEDS ORDERED: LIDOCAINE 1%-EPI 1:100000 50 ML VIAL ONE (09:47)
[2023-04-24] MEDS ORDERED: LIDOCAINE-MPF 1% 5 ML VIAL ONE (09:48)
[2023-04-24] MEDS ORDERED: LIDOCAINE-MPF 1% 5 ML VIAL TD ONE (15:54)
[2023-04-24] MEDS ORDERED: LIDOCAINE 1%-EPI 1:100000 50 ML VIAL TD ONE (16:00)
[2023-04-24] MEDS ORDERED: LIDOCAINE 1%-EPI 1:100000 50 ML VIAL TD SCH (16:00)
--- NOTE | 2023-04-25 08:27 | Mammography Report ---
UNILATERAL RIGHT DIGITAL DIAGNOSTIC MAMMOGRAM POST-PROCEDURE IMAGING FOR MARKER PLACEMENT: 04/24/2023 CLINICAL: Post right breast ultrasound biopsy clip placement imaging. Comparison is made to exams dated: 04/03/2023 ultrasound, 04/03/2023 ultrasound, 04/03/2023 mammogram, 03/13/2023 mammogram, and 08/21/2017 mammogram - [facility]. There are scattered areas of fibroglandular density in the right breast (category b / 25%-50% glandul ar tissue). There is a marker clip in the appropriate position in the right breast at 4 o'clock anterior depth at the biopsy site. IMPRESSION: POST PROCEDURE MAMMOGRAM FOR MARKER PLACEMENT There was a successful marker clip placement in the right breast anterior depth. Future imaging is recommended as follows: 10/03/2023 left mammogram and an ultrasound. Based on the Tyrer Cuzick model (a risk assessment model) the patients lifetime risk is 12.1% and he r 10 year risk is 4.0%. According to the ACR, ACS, and NCCN guidelines, an annual breast MRI exam alissa ng with mammogram is recommended if the patients lifetime risk is 20% or greater. This exam was interpreted at Station ID: [id number]. NOTE: For mammograms, a report in lay terms will be sent to the patient. Approximately 15% of breast malignancies will not be visualized mammographically. In the management of a palpable breast mass, a negative mammogram must not discourage biopsy of a clinically suspicious lesion. Electronically Signed By: Gerard Bailey M.D. slc/:04/24/2023 11:38:44 ACR BI-RADS Category Post-procedure mammogram for marker placement PARENCHYMAL PATTERN: (A) - The breast(s) demonstrate(s) scattered fibroglandular densities. BI-RADS CATEGORY: () - Unspecified - other recall n/a LATERALITY: (B)
--- NOTE | 2023-05-01 12:59 | Ultrasound Report ---
ULTRASOUND GUIDED BIOPSY RIGHT BREAST USING VACUUM DEVICE WITH MARKING DEVICE INSERTED AND POST DIGIT AL MAMMOGRAPHIC IMAGIN04/24/2023 CLINICAL: Right breast mass. PATIENT CONSENT: Risks (minor bleeding, infection, vasovagal reaction and repeat procedure), benefits and alternatives were explained to the patient and written informed consent was obtained. Correlation is made to exams dated: 04/03/2023 ultrasound, 04/03/2023 mammogram, 03/13/2023 mammogram, 08/21/2017 mammogram, 04/03/2023 ultrasound, and 04/24/2023 mammogram - [facility]. An ultrasound guided biopsy using real-time ultrasound was performed for the 1.1 cm x 0.9 cm x 0.7 cm mass located in the right breast at 4 o'clock anterior depth 2 cm from the nipple. This was describ ed on the previous ultrasound report. The skin was prepped in the usual manner. Local anesthetic wa s administered to the access site. A skin alejandro was made in the breast. The abnormality was approach ed from the lateral aspect. A biopsy needle was placed adjacent to the abnormality under ultrasound guidance. Once the needle was documented to be in the correct location, four cores were obtained usi ng the Mammotome biopsy system. The patient received additional local anesthetic during the procedur e. A hydromark clip was inserted into the biopsy cavity. A skin adhesive and a sterile dressing wer e applied to the access site. Post procedure digital mammographic imaging demonstrates the location device at the targeted area. The specimens were sent to the laboratory for pathological analysis. IMPRESSION: ULTRASOUND GUIDED BIOPSY MALIGNANT Ultrasound guided biopsy of the 1.1 cm x 0.9 cm x 0.7 cm mass in the right breast at 4 o'clock anteri or depth 2 cm from the nipple was successful with no apparent post procedure complications. 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 Pathology results are concordant with imaging findings. A surgical/oncologic consultation is recommended. Future imaging for separate finding in contralateral breast is recommended as follows: 10/03/2023 lef t mammogram and an ultrasound. Please see left breast ultrasound report dated 04/03/2023 for details. This exam was interpreted at Station ID: [id number]. Gerard Massey M.D. [facility] [place],aty/:04/26/2023 19:26:57 BI-RADS CATEGORY: () - Mammo and US recall n/a LATERALITY: (L)
== END 2023-04-24 09:45 | disposition home or self-care (01) ==
LOC: DI 09:44
PROVIDERS: ATTEND Registered Nurse
DX: R92.321 Mammographic fibroglandular density, right breast (principal); Z17.0 Estrogen receptor positive status [ER+]; D05.11 Intraductal carcinoma in situ of right breast
CPT/HCPCS: 19083; 77065; J3490

== ENCOUNTER 2023-05-22 16:09 | Outpatient (CLI) | payer BC ==
--- NOTE | 2023-05-22 16:27 | Sleep Patient Instructions ---
Sleep Center Visit Summary - Patient Visit Information Reason for Visit: Annual visit - Patient Instructions Additional Instructions: You will continue with CPAP therapy with pressure set at 8-10 cmH2O. A supply prescription will be updated with your DME. We encourage you to continue to try to lose weight. Please follow up with the sleep care office in 1 year. - Clinic Information Contact: [facility] [address] [place] [address] [email or web address] T: [phone]
--- NOTE | 2023-05-22 16:30 | SLEEP CARE CONSULTATION ---
Information from patient questionnaire entered by Gildardo Glass. I have reviewed and concur with the information entered by Gildardo Glass. This document represents the service I personally performed and the decisions made by me, Jasmin Jara ARNP. History of Present Illness Service Date and Time: 05/22/2023 1609 Previous diagnosis: Mild, Obstructive Sleep Apnea-Hypopnea Syndrome AHI: 14.9 Reason for follow up: annual (COMPLETED 12/2021) Equipment type: CPAP (RESMED 11, s/u 06/2021) Equipment obtained from: Other ([facility]; getting supplies) Mask style: Nasal pillows Backup mask available: Yes Last cushion change: 2 weeks Prior sleep studies: No Type of Sleep Study: Home sleep study (F/U HOME STUDY) HPI additional information: UNIQUE WRAY was diagnosed to have mild, AHI 14.9, obstructive sleep apnea-hypopnea syndrome and returned today for CPAP therapy annual follow-up. Sleep Study - Results Type of Sleep Study: Home sleep study (F/U HOME STUDY) Prior sleep studies: No CPAP Compliance Data - Data Reviewed with Patient Average duration of nightly device use: 5 HRS 59 MINS Compliance rate %: 83 (05/20/22-05/19/23; 348/365 days used) Current pressure setting (cmH2O): 8-10 Average residual AHI: 1.4 Central apnea: 1 Obstructive apnea: 0.1 Hypopnea: 0.2 Average large leak: 0 L/min Subjective Missed days of use due to: reports: travel Patient concerns: reports: dry mouth, nose, throat (dry mouth). denies: aerophagia, mask discomfort, air blowing in eyes, mask leak noise, condensation in mask/hose, nasal congestion, epistaxis Observed to snore while using device: No Current pressure setting perceived as: comfortable On therapy, patient: reports: sleeping better, awakening more refreshed, being more awake and alert during the day, more rested overall. denies: drowsiness while driving Initial [place] Sleepiness Scale score: 10 Current [place] Sleepiness Scale score: 3 (05/22/23) Allergies and Home Medications Known drug allergies: No Drug allergies reviewed: Yes Home medication list reviewed: Yes (no changes) Allergy and home medication list: Allergies No Known Drug Allergies Allergy (Verified 05/20/23 14:33) Review of Systems Review of systems same as previous: No (stage 1 breast cancer) Physical Exam Vital signs obtained and entered by: GILDARDO Livingston MA Blood Pressure: 129/89 (LEFT ARM) Cuff size: regular Heart Rate: 78 O2 Saturation: 99 Height: 5 ft 6 in Weight: 211 lb 12.8 oz Body Mass Index: 34.2 BMI Classification: Obese Impression and Plan 1. Obstructive Sleep Apnea-Hypopnea Syndrome, mild, with good treatment compliance and good apnea control. On CPAP therapy, the patient has better sleep quality and is more rested overall. Patient has significant improvement of their sleep apnea and is satisfied with current CPAP therapy. Patient has been getting some very dry mouth in the last several weeks. 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 She voiced understanding and will look at adjusting her machines humidity setting. She has no other complaints. We will follow-up with her next year. Patient's apnea severity and rationale for treatment to reduce apnea, improve sleep quality and reduce cardiovascular and cerebrovascular events was reviewed. 2. Obesity, unspecified. Currently patients BMI is 34.2. Obesity increases the risk of apnea, CPAP pressure requirements and overall health risks especially cardiovascular and diabetes. Thus patient is advised to lose weight. * Continue auto CPAP pressure at 8-10 cmH2O * Change auto CPAP pressure to cmH2O * Notify me if snoring with mask or feeling that the pressure is too much or too little * Attempt to lose weight * Call this office if any problems using CPAP * Return for follow up in 12 months, or sooner if concerns arise Counseling Topics: Spare mask, Weight loss health impact Prescriptions: Device supplies Follow up with Sleep Care in: 1 year Visit Type: In Office Time Spent with Patient (minutes): 17 Provider Statement: I spent 100% of the Face to Face Visit with the patient with greater than 50% spent counseling the patient and coordination of care.
[2023-05-22 16:37] VITALS: BP 129/89; O2SAT 99
== END 2023-05-22 16:10 | disposition home or self-care (01) ==
LOC: SC 16:09
PROVIDERS: ATTEND Nurse Practitioner Family
DX: G47.33 Obstructive sleep apnea (adult) (pediatric) (principal); E66.9 Obesity, unspecified; Z68.34 Body mass index [BMI] 34.0-34.9, adult
CPT/HCPCS: 99212

== ENCOUNTER 2023-06-03 08:22 | Day surgery (SDC) | payer BC ==
[~2023-06-03 08:22] MED LIST: LIDOCAINE-MPF 1% 5 ML VIAL ONE; ceFAZolin 2 GM VIAL ONE
[2023-06-03] MEDS: LACTATED RINGERS 1,000 ML IV ONE ×2 (08:31→15:17)
[2023-06-03] MEDS: ACETAMINOPHEN 500 MG TABLET PO ONE ×2 (08:47→16:34)
[2023-06-03] MEDS: ALPRAZolam 0.25 MG TABLET PO ONE (08:48)
--- NOTE | 2023-06-03 09:57 | ANESTHESIA ---
Pre-Anesthesia VS, & Labs - Diagnosis R invasive ductal carcinoma - Procedure R wire loc. lumpectomy Vital Signs: Temp Pulse Resp BP Pulse Ox O2 Flow Rate 36.8 C 73 16 124/85 H 97 06/03/23 08:25 06/03/23 08:25 06/03/23 08:25 06/03/23 08:25 06/03/23 08:25 Height: 5 ft 6 in Weight (kg): 94 kg Body Mass Index: 33.4 BMI Classification: Obese Home Medications and Allergies Home Medications: Ambulatory Orders Cholecalciferol [Vitamin D3] 50 mcg PO DAILY 05/28/23 Multivitamin 1 each PO DAILY 05/28/23 Fluticasone [Flonase] 2 spray SOPHIA PRN PRN 06/03/23 Cetirizine [ZyrTEC] 1 tab ORAL PRN PRN 09/05/21 Cholecalciferol [Vitamin D3] 50 mcg PO DAILY 05/28/23 Multivitamin 1 each PO DAILY 05/28/23 Fluticasone [Flonase] 2 spray SOPHIA PRN PRN 06/03/23 Allergies/Adverse Reactions: Allergies Allergy/AdvReac Type Severity Reaction Status Date / Time bee venom protein (honey bee) Allergy swelling Verified 05/28/23 16:02 Anes History & Medical History - Medical History Cardiovascular: reports: None Pulmonary: reports: Sleep apnea Gastrointestinal: reports: GERD, Hiatal hernia Urinary: reports: None Musculoskeletal: reports: None Endocrine/Autoimmune: reports: None Skin: reports: Other - Surgical History General: reports: Colonoscopy, EGD, Other Eyes Ears Nose Throat (EENT): reports: Tonsil/Adenoidectomy Exam General: Alert, Oriented x3, Cooperative Plan Anesthesia Type: General Code Status: Attempt Resuscitation ASA classification: 3-Severe systemic disease Is this case an emergency?: No
--- NOTE | 2023-06-03 11:27 | ANESTHESIA ---
Pre-Anesthesia VS, & Labs - Diagnosis right breast invasive ductal carcinoma - Procedure right breast wire localized lumpectomy with SN biopsy Vital Signs: Temp Pulse Resp BP Pulse Ox O2 Flow Rate 36.8 C 73 16 124/85 H 97 06/03/23 08:25 06/03/23 08:25 06/03/23 08:25 06/03/23 08:25 06/03/23 08:25 Height: 5 ft 6 in Weight (kg): 94 kg Body Mass Index: 33.4 BMI Classification: Obese - NPO >8 hours - Is Patient ?: No Home Medications and Allergies Home Medications: Ambulatory Orders Cholecalciferol [Vitamin D3] 50 mcg PO DAILY 05/28/23 Multivitamin 1 each PO DAILY 05/28/23 Fluticasone [Flonase] 2 spray SOPHIA PRN PRN 06/03/23 Cetirizine [ZyrTEC] 1 tab ORAL PRN PRN 09/05/21 Cholecalciferol [Vitamin D3] 50 mcg PO DAILY 05/28/23 Multivitamin 1 each PO DAILY 05/28/23 Fluticasone [Flonase] 2 spray SOPHIA PRN PRN 06/03/23 Allergies/Adverse Reactions: Allergies Allergy/AdvReac Type Severity Reaction Status Date / Time bee venom protein (honey bee) Allergy swelling Verified 05/28/23 16:02 Anes History & Medical History - Anesthetic History Anesthesia Complications: reports: No previous complications Family history of Anesthesia Complications: Denies Family history of Malignant Hyperthermia: Denies - Medical History Cardiovascular: reports: None Pulmonary: reports: Sleep apnea, CPAP use (every night) Gastrointestinal: reports: GERD, Hiatal hernia Urinary: reports: None Neuro: reports: None Musculoskeletal: reports: None Endocrine/Autoimmune: reports: None Skin: reports: Other Smoking Status: Never smoker Psychosocial: reports: Alcohol (1-3 drinks per week) History of Cancer?: Yes (breast cancer) - Surgical History General: reports: Colonoscopy, EGD, Other Eyes Ears Nose Throat (EENT): reports: Tonsil/Adenoidectomy Exam General: Alert, Oriented x3, Cooperative, No acute distress Dental: WNL Mouth Openin Fingerbreadth Neck Mobility: Normal Mallampati classification: II Thyromental Distance: 4-6 cm Mental/Cognitive Status: Alert/Oriented X3, Normal for patient Plan Anesthesia Type: General Consent for Procedure(s) Verified and Reviewed: Yes Code Status: Attempt Resuscitation ASA classification: 3-Severe systemic disease Is this case an emergency?: No
[2023-06-03] MEDS ORDERED: PROPOFOL 200 MG/20 ML VIAL IVP ONE (12:22)
[2023-06-03] MEDS ORDERED: fentaNYL 100 MCG/2 ML VIAL ONE ×2 (12:22→15:39)
[2023-06-03] MEDS ORDERED: MIDAZOLAM 2 MG/2 ML VIAL ONE (12:22)
[2023-06-03] MEDS ORDERED: LIDOCAINE-PF 2% 10 ML AMP SUBQ ONE (12:22)
[2023-06-03] MEDS ORDERED: LIDOCAINE 1%-EPI 1:100000 20 ML MDV ONE (12:47)
[2023-06-03] MEDS ORDERED: BUPIVACAINE 0.5% PF 10 ML VIAL ONE (12:47)
[2023-06-03] MEDS ORDERED: METHYLENE BLUE 0.5% 50 MG/10 ML AMPULE ONE (13:11)
[2023-06-03] MEDS ORDERED: DEXAMETHASONE 4 MG/ML VIAL ONE (13:18)
[2023-06-03] MEDS ORDERED: ONDANSETRON 4 MG/2 ML VIAL ONE (13:18)
[2023-06-03] MEDS: LIDOCAINE-MPF 1% 5 ML VIAL TD ONE (13:19)
[2023-06-03] MEDS: METHYLENE BLUE 0.5% 50 MG/10 ML AMPULE IV ONE (13:25)
[2023-06-03] MEDS: BUPIVACAINE 0.5% PF 10 ML VIAL SUBQ ONE (13:36)
[2023-06-03] MEDS: LIDOCAINE 1%-EPI 1:100000 20 ML MDV SUBQ ONE (13:36)
[2023-06-03] MEDS ORDERED: ePHEDrine 50 MG/ML VIAL IVP ONE (13:39)
[2023-06-03] MEDS ORDERED: HYDROmorphone 1 MG/ML CARPUJECT ONE (14:19)
[2023-06-03] MEDS ORDERED: ONDANSETRON 4 MG/2 ML VIAL IVP PRN ×3 (15:24→15:26)
[2023-06-03] MEDS ORDERED: MORPHINE 2 MG/ML CARPUJECT IVP PRN (15:24)
[2023-06-03] MEDS ORDERED: HYDROmorphone 0.5 MG/0.5 ML SYRINGE IVP PRN ×3 (15:24→15:26)
[2023-06-03] MEDS ORDERED: NALOXONE 0.4 MG/ML VIAL IVP PRN (15:24)
[2023-06-03] MEDS ORDERED: ATROPINE ABBOJECT 1 MG/10 ML SYRINGE IVP PRN (15:24)
[2023-06-03] MEDS ORDERED: ACETAMINOPHEN 500 MG TABLET PO PRN (15:26)
--- NOTE | 2023-06-03 15:29 | OPERATIVE REPORT ---
Operative Report - General Procedure Date: 06/03/23 Planned Procedure: right wire localized lumpectomy and sentinel lymph node biopsy Pre-Op Diagnosis: invasive ductal carcinoma Procedure Performed: right wire localized lumpectomy and sentinel lymph node biopsy Post Op Diagnosis: invasive ductal carcinoma - Procedure Note Primary Surgeon: Dr. Shakila Olivo Anesthesia Provider: Margarette Nickerson CRNA Anesthesia Technique: General LMA, Local Pathology: 1. right lumpectomy, clip and wire confirmed, oriented short superior, long lateral, double anterior 2. SLN #1, 1023 Estimated Blood Loss (mL): 10 Drain/Tube Type: Miller Baker round drain (right breast) Indications: The patient had abnormal findings on her mammogram of her right breast. Follow- up imaging showed persistence of the area, and image guided biopsy demonstrated invasive ductal carcinoma. She had an MRI which is concordant with the above studies. She was seen in clinic where we discussed the risks, benefits, and alternatives of lumpectomy versus mastectomy. Risks of lumpectomy include bleeding, infection, damage to surrounding structures, numbness in the area, positive margins requiring reexcision, and the need for further surgeries or procedures. The patient voiced understanding, her questions were answered, and she wished to proceed. A consent was signed by the patient prior to surgery. Findings: 1. right lumpectomy, clip and wire confirmed, oriented short superior, long lateral, double anterior 2. STEFANO drain left in lumpectomy cavity 3. SLN #1, 1023 4. No additional abnormal feeling, blue, or radioactive above [address] identified Complications: None - Other Other Information/Narrative: The patient was taken to the operating room and placed in the supine position. Preop antibiotics were given. ERAS medications were given. The patient was prepped and draped in the usual sterile fashion. A preop surgical timeout was performed. Attention was turned to the patient's right breast. An incision was made which incorporated the wire, following the patient's skin folds, at the 4 o'clock position, N + 3. Skin flaps were raised superiorly and inferiorly to the incision. The dissection was carried down to the thick part of the wire using electrocautery. At this point, serrated scissors were used to perform a lumpectomy staying approximately 1 cm away from the wire in all dimensions. The mass was not very easy to palpate, but care was taken to stay in normal feeling and appearing breast tissue during the lumpectomy. The lumpectomy specimen was removed and oriented with suture on the back table, short superior, long lateral, double anterior. The specimen was sent to mammography and the biopsy clip was confirmed to be within the specimen.The edges of the lumpectomy cavity were inspected and there were no palpable abnormalities. Hemostasis was confirmed. The lumpectomy cavity was irrigated with warm normal saline. Clips were placed in the superior, inferior, medial, lateral, anterior, and posterior margins of the lumpectomy cavity. A 7 Japanese STEFANO drain was placed in the lumpectomy cavity, due to its size. This was sewn into place using a 3-0 nylon suture. The deep dermal tissues were closed with 3-0 Vicryl in an interrupted fashion. The skin was closed with 4-0 Monocryl in a running subcuticular fashion. Attention was then turned to the right axilla. An incision was made just inferior to the hairline at the area of greatest uptake using the neoprobe device. Preop neoprobe uptake had been low, so blue dye had also been injected in 4 quadrants around the nipple and a total amount of 2 mL. The incision was made using a 15 blade scalpel and carried down through the skin and subcutaneous tissues to the level of the axillary fascia. The fascia was incised. The sentinel lymph node was identified using the neoprobe and the naked eye. Clips were used proximally and distally to the node and it was removed. The first node had a maximal reading of 1024 on the back table and appeared normal. On further inspection, there were no additional lymph nodes that had at least 10% uptake, 100, and no additional abnormal palpable or blue lymph nodes. Hemostasis was confirmed in the axilla. The deep dermal tissues were closed with 3-0 Vicryl. A 4-0 Monocryl running stitch was placed in a subcuticular fashion. Skin glue was placed over both incisions. The patient tolerated the procedure well. There were no complications. Synoptic Breast SNB - [place] Node Biopsy Operation performed with curative intent: Yes Tracer(s) used to identify sentinel nodes in the upfront surgery (non- neoadjuvant) setting (select all that apply): Dye, Radioactive tracer Tracer(s) used to identify sentinel nodes in the neoadjuvant setting (select all that apply): N/A All nodes (colored or non-colored) present at the end of a dye-filled lymphatic channel were removed: Yes All significantly radioactive nodes were removed: Yes All palpably suspicious nodes were removed: Yes Biopsy-proven positive nodes marked with clips prior to chemotherapy were identified and removed: N/A
[2023-06-03] MEDS: fentaNYL 100 MCG/2 ML VIAL IVP PRN (15:43)
[2023-06-03] MEDS ORDERED: LACTATED RINGERS 1,000 ML IV SCH (16:00)
[2023-06-03] MEDS ORDERED: oxyCODONE 5 MG TABLET ONE (16:33)
[2023-06-03] MEDS: oxyCODONE 5 MG TABLET PO PRN (16:36)
[2023-06-03 16:55] VITALS: BP 109/78; O2SAT 100
--- NOTE | 2023-06-05 11:32 | Mammography Report ---
SPECIMEN RIGHT BREAST- - RIGHT BREAST POST LUMPECTOMY: 06/03/2023 CLINICAL: Right breast specimen. Correlation is made to exams dated: 06/03/2023 localization, 06/03/2023 mammogram, 04/24/2023 mammogram, and 04/03/2023 mammogram - [facility]. Two specimen radiographs demonstrate the targeted mass with biopsy clip and localization wire. Dr. Olivo was notified of the results in the operating room. IMPRESSION: SPECIMEN The imaged specimen includes the mass, biopsy clip, and single localization wire. Dr. Olivo was noti fied of the results in the operating room. Future imaging is recommended as follows: 10/03/2023 left mammogram and an ultrasound. This exam was interpreted at Station ID: [id number]. Lyubov Porter M.D., PH.D eb/:06/04/2023 22:01:30 BI-RADS CATEGORY: () - Unspecified - other recall n/a LATERALITY: (B)
--- NOTE | 2023-06-05 11:32 | Mammography Report ---
UNILATERAL RIGHT DIGITAL DIAGNOSTIC MAMMOGRAM WITH MEDIOLATERAL OBLIQUE: 06/03/2023 CLINICAL: Right breast wire localization. Comparison is made to exams dated: 06/03/2023 localization, 04/24/2023 ultrasound biopsy, 04/24/2023 m ammogram, and 04/03/2023 ultrasound - [facility]. There are scattered areas of fibroglandular density in the right breast (category b / 25%-50% glandul ar tissue). Single wire localization targeted mass and biopsy clip in the lower inner quadrant at anterior depth. IMPRESSION: Appropriate position of single wire localization. Future imaging is recommended as follows: 10/03/2023 left mammogram and an ultrasound. This exam was interpreted at Station ID: [id number]. NOTE: For mammograms, a report in lay terms will be sent to the patient. Approximately 15% of breast malignancies will not be visualized mammographically. In the management of a palpable breast mass, a negative mammogram must not discourage biopsy of a clinically suspicious lesion. Electronically Signed By: Lyubov Porter M.D., PH.D eb/:06/04/2023 21:59:31 ACR BI-RADS Category n/a PARENCHYMAL PATTERN: (A) - The breast(s) demonstrate(s) scattered fibroglandular densities. BI-RADS CATEGORY: () - Unspecified - other recall n/a LATERALITY: (B)
--- NOTE | 2023-06-05 11:32 | Ultrasound Report ---
WIRE LOCALIZATION RIGHT BREAST: 06/03/2023 CLINICAL: Right Breast Wire Localization and [place] Lymph Node procedure. Correlation is made to exams dated: 05/16/2023 breast MRI - [facility], 04/24/2023 ultrasound biop sy, and 04/24/2023 mammogram - [facility]. A wire localization was performed for the mass and biopsy clip located in the right breast at 4 o'ja ck, 2 cm from the nipple. The skin was prepped in the usual manner. Local anesthetic using 1 percen t lidocaine was administered. A wire was inserted into the targeted area. Post placement imaging dem onstrates the wire in appropriate location. IMPRESSION: WIRE LOCALIZATION Wire localization for the mass plus biopsy clip in the right breast at 4 o'clock, 1 cm from the nippl e was successful. Future imaging is recommended as follows: 10/03/2023 left mammogram and an ultrasound. This exam was interpreted at Station ID: [id number]. Lyubov Porter M.D., PH.D eb/:06/04/2023 21:57:29 BI-RADS CATEGORY: () - Unspecified - other recall n/a LATERALITY: (B)
== END 2023-06-03 08:23 | disposition home or self-care (01) ==
LOC: DI 08:22
PROVIDERS: ATTEND Surgery
PROC: 0HBT0ZX Excision of Right Breast, Open Approach, Diagnostic (ICD-10-PCS; 2023-06-03)
PROC: 0HBT0ZZ Excision of Right Breast, Open Approach (ICD-10-PCS; principal; 2023-06-03 11:20)
DX: C50.311 Malignant neoplasm of lower-inner quadrant of right female breast (principal); Z17.0 Estrogen receptor positive status [ER+]; E66.9 Obesity, unspecified; G47.33 Obstructive sleep apnea (adult) (pediatric); Z68.33 Body mass index [BMI] 33.0-33.9, adult; Z80.3 Family history of malignant neoplasm of breast
CPT/HCPCS: 19285

== ENCOUNTER 2023-12-13 10:23 | Outpatient (CLI) | payer BC | END 2023-12-13 10:24 | disposition home or self-care (01) | LOC: NS 10:23 | PROVIDERS: ATTEND Registered Nurse | DX: Z71.3 Dietary counseling and surveillance (principal); K44.9 Diaphragmatic hernia without obstruction or gangrene; Z68.33 Body mass index [BMI] 33.0-33.9, adult | CPT/HCPCS: 97802 ==

== ENCOUNTER 2023-12-13 12:00 | Outpatient (CLI) | payer BC ==
--- NOTE | 2023-12-13 14:49 | Ultrasound Report ---
PROCEDURE: Duplex Ext Veins Right INDICATIONS: NUMBNESS, TINGLING, BREAST CA TECHNIQUE: Real-time imaging, as well as color and pulse Doppler interrogation, was performed of the right upper extremity deep veins from the inferior neck to the antecubital fossa. COMPARISON: None. FINDINGS: The internal jugular vein, visualized portions of the subclavian vein, axillary, and brach ial veins are free of intraluminal thrombus. Where physically possible, the veins are normally compr essible. Color and pulse Doppler demonstrate normal intraluminal flow, with expected phasicity and p ulsatility. Additional scanning of the cephalic and basilic veins of the superficial system demonstr ate normal compressibility, without thrombus. IMPRESSION: No deep venous thrombosis of the visualized upper extremity. Reviewed by: Octavio Mayfield MD on 12/13/2023 2:48 PM PDT Approved by: Octavio Mayfield MD on 12/13/2023 2:48 PM PDT Station ID: [id number]
== END 2023-12-13 12:01 | disposition home or self-care (01) ==
LOC: DI 12:00
PROVIDERS: ATTEND Internal Medicine Hematology & Oncology
DX: R20.2 Paresthesia of skin (principal); C50.919 Malignant neoplasm of unspecified site of unspecified female breast; Z79.899 Other long term (current) drug therapy

== ENCOUNTER 2023-12-19 09:39 | Outpatient (CLI) | payer BC ==
--- NOTE | 2023-12-20 15:34 | Mammography Report ---
BILATERAL DIGITAL DIAGNOSTIC MAMMOGRAM 3D/2D WITH SPOT COMPRESSION - RIGHT BREAST POST LUMPECTOMY: CLINICAL: Patient returns for a 6 month follow up of the left breast. Post right lumpectomy. Comparison is made to exams dated: 06/03/2023 mammogram, 04/24/2023 mammogram, 04/03/2023 mammogram, mammogram, and 08/21/2017 mammogram - Located within [facility]. There are scattered areas of fibroglandular density in both breasts (category b / 25%-50% glandular t issue). There are surgical clips in the right breast at 4 o'clock that correlate with surgical site. Prior 4 mmasymmetry in the left breast at 9 o'clock is no longer seen. There is an oval asymmetry in the left breast at 12 o'clock anterior depth. This is not significantl y changed. No other significant masses, calcifications, or other findings are seen in either breast. Mammograms are otherwise stable. IMPRESSION: INCOMPLETE: NEEDS ADDITIONAL IMAGING EVALUATION Expected surgical changes in the right breast following lumpectomy. 4 mm Left breast asymmetry no longer seen. The oval asymmetry in the left breast is stable. An ultrasound is recommended to confirm stability . This was performed immediately following this exam. This exam was interpreted at Station ID: [id number]. NOTE: For mammograms, a report in lay terms will be sent to the patient. Approximately 15% of breast malignancies will not be visualized mammographically. In the management of a palpable breast mass, a negative mammogram must not discourage biopsy of a clinically suspicious lesion. Electronically Signed By: Kimberly campos/:12/19/2023 12:11:48 ACR BI-RADS Category 0: Incomplete 3340F PARENCHYMAL PATTERN: (A) - The breast(s) demonstrate(s) scattered fibroglandular densities. BI-RADS CATEGORY: (0) - 0 Ultrasound [id number] Immediate follow-up LATERALITY: (B)
--- NOTE | 2023-12-20 15:34 | Ultrasound Report ---
LIMITED ULTRASOUND OF LEFT BREAST: 12/19/2023 CLINICAL: Patient returns for a 6 month follow up of the left breast. Comparison is made to exams dated: 12/19/2023 mammogram, 06/03/2023 specimen, 06/03/2023 localization, 06/03/2023 mammogram - [facility], 05/16/2023 breast MRI - [facility], and 04/24/2023 ultrasound biopsy - [facility]. Color flow and real-time ultrasound of the left breast 12 o'clock, and retroareolar regions were per formed. Sosa scale images of the real-time examination were reviewed. There is a 0.5 cm x 0.4 cm x 0.3 cm oval cyst in the left breast central to the nipple anterior depth . This oval cyst is probably anechoic with a well-defined boundary. This correlates with mammograph y findings. Color flow imaging demonstrates that there is no vascularity present. IMPRESSION: PROBABLY BENIGN The 0.5 cm x 0.4 cm x 0.3 cm oval cyst in the left breast is stable, corresponds to the mammogram fin ding, most likely is a simple cyst and is probably benign. A follow-up left mammogram and an ultrasound in 6 months is recommended to demonstrate stability. Findings and recommendations were conveyed to the patient at time of exam. This exam was interpreted at Station ID: [id number]. Electronically Signed By: Kimberly campos/:12/19/2023 12:14:05 Ultrasound BI-RADS: 3 Probably benign BI-RADS CATEGORY: (3) - 3 Mammo and [place] [id number] 6 month follow-up LATERALITY: (L)
== END 2023-12-19 09:40 | disposition home or self-care (01) ==
LOC: DI 09:39
PROVIDERS: ATTEND Surgery
DX: N60.02 Solitary cyst of left breast (principal); R92.323 Mammographic fibroglandular density, bilateral breasts